=== PATIENT | male | born 1975 | race African-American/Black ===

== ENCOUNTER 2019-02-27 22:31 | Emergency (ER) | payer MEDICAID ==
[~2019-02-27] VITALS: Ht 185.4 cm; Wt 97.7 kg
[2019-02-28 03:15] VITALS: BP 134/87
== END 2019-02-28 03:20 | disposition home or self-care (01) ==
LOC: EMS 22:32
DX: S86.011A Strain of right Achilles tendon, initial encounter (principal); F17.210 Nicotine dependence, cigarettes, uncomplicated; X50.0XXA Overexertion from strenuous movement or load, initial encounter; Y93.67 Activity, basketball; Y92.89 Other specified places as the place of occurrence of the external cause; Y99.8 Other external cause status
CPT/HCPCS: 29515